=== PATIENT | female | born 1985 | race Caucasian/White ===

== ENCOUNTER 2016-04-03 20:52 | Emergency (ER) | payer MEDICAID, OTHER ==
[~2016-04-03] VITALS: Ht 160 cm; Wt 55.0 kg
[~2016-04-03 20:52] MED LIST: DOCO200C PO; Docusate Sod/Senna PO; IBUP600 PO
[2016-04-03 20:54] VITALS: BP 147/84; PULSE 75; RESP 16; TEMP 98.5; O2SAT 98
--- NOTE | 2016-04-03 23:01 | PD ---
HPI Chief Complaint: Back/ Neck Pain or Injury Time Seen by Provider: 22:58 Travel History International Travel<30 days: No Contact w/Intl Traveler<30days: No Traveled to known affect area: No History of Present Illness HPI 31-year-old white female presents to emergency department with three-day history of lower back pain. She states that she does lifting at work but does not recall any injury. She states the pain is worse in the lower back but does travel up her back to her neck. She has had no significant back injuries in the past. She has not had any recent illness. No fever chills. No nausea vomiting. No abdominal pain or diarrhea. No dysuria or frequency. No hematuria. She states the pain is worse when she bends and moves. Sometimes sitting is uncomfortable as well. Pain is moderate. PFSH Past Medical History Medical History: Denies Significant Hx Tetanus Vaccination: < 5 Years ?: Not LMP: 02/29/16 Past Surgical History Surgical History: No Previous Surgery Social History Alcohol Use: Yes Tobacco Use: Yes Allergies-Medications (Allergen,Severity, Reaction): Coded Allergies: Penicillin (Unverified Allergy, Mild, hives, 04/03/16) Reported Meds & Prescriptions Reported Meds & Active Scripts Active Diclofenac Sodium DR (Diclofenac Sodium) 50 Mg Tabdr 50 Mg PO TID Robaxin (Methocarbamol) 500 Mg Tab 500 Mg PO QID Motrin 600 Mg Tab (Ibuprofen) 600 Mg Tab 600 Mg PO Q6H PRN [Docusate Sod/Senna] 1 TAB Tab 2 Tab PO Q12H PRN Reported Dha (Docosahexanoic Acid) 200 Mg Cap 200 Mg PO DAILY Review of Systems Except as stated in HPI: all other systems reviewed are Neg Physical Exam Narrative GENERAL: Well-developed, well-nourished in no apparent distress. Nontoxic appearing. HEAD: Normocephalic, atraumatic. EYES: Pupils equal round and reactive. Extraocular motions intact. No scleral icterus. No injection or drainage. ENT: Nose clear. Throat without erythema, tonsillar hypertrophy or exudate. Uvula midline. Airway patent. NECK: Trachea midline. Supple, nontender, moves head freely. No central bony tenderness or spasm. CARDIOVASCULAR: Regular rate and rhythm without murmurs, gallops, or rubs. RESPIRATORY: Clear to auscultation. Breath sounds equal bilaterally. No wheezes , rales, or rhonchi. GASTROINTESTINAL: Abdomen soft, non-tender, nondistended. No hepato-splenomegaly , or palpable masses. No guarding. EXTREMITIES: No clubbing, cyanosis, or edema. No joint tenderness. BACK: Resting comfortable in the examination room. Without deformity. No flank tenderness. No central bony tenderness to palpation of dorsal lumbar spine. The patient has some mild paraspinal tenderness in the lower lumbar spine. No spasm. She is able to bend 4-70. Negative straight leg raise. Heel and toe stand. No saddle anesthesia. Neurovascular intact distally. NEUROLOGICAL: Awake, alert and oriented x 3 .Cranial nerves grossly intact. Motor and sensory grossly within normal limits. Normal speech. Data Data Last Documented VS Vital Signs Date Time Temp Pulse Resp B/P Pulse Ox O2 Delivery O2 Flow Rate FiO2 04/03/16 20:54 98.5 75 16 147/84 98 Room Air Orders Spine, Lumbar - Ltd (Ap & Lat) (04/03/16 22:57) Naproxen (Naprosyn) (04/03/16 23:15) Cyclobenzaprine (Flexeril) (04/03/16 23:15) Ondansetron Odt (Zofran Odt) (04/04/16 00:00) Urinalysis - C+S If Indicated (04/03/16 23:47) Ed Urine Pregnancytest Poc (04/03/16 23:47) Labs Laboratory Tests Test 04/03/16 23:59 Urine Color YELLOW Urine Turbidity CLEAR Urine pH 8.0 Urine Specific [place] 1.015 Urine Protein TRACE mg/dL Urine Glucose (UA) NEG mg/dL Urine Ketones NEG mg/dL Urine Occult Blood NEG Urine Nitrite NEG Urine Bilirubin NEG Urine Urobilinogen LESS THAN 2.0 MG/DL Urine Leukocyte Esterase SMALL Urine RBC LESS THAN 1 /hpf Urine WBC 1 /hpf Urine Squamous Epithelial 4 /hpf Cells Microscopic Urinalysis Comment CULT NOT INDICATED MDM Medical Decision Making Medical Screen Exam Complete: Yes Emergency Medical Condition: Yes Medical Record Reviewed: Yes Interpretation(s) Laboratory Tests Test 04/03/16 23:59 Urine Color YELLOW Urine Turbidity CLEAR Urine pH 8.0 Urine Specific [place] 1.015 Urine Protein TRACE mg/dL Urine Glucose (UA) NEG mg/dL Urine Ketones NEG mg/dL Urine Occult Blood NEG Urine Nitrite NEG Urine Bilirubin NEG Urine Urobilinogen LESS THAN 2.0 MG/DL Urine Leukocyte Esterase SMALL Urine RBC LESS THAN 1 /hpf Urine WBC 1 /hpf Urine Squamous Epithelial 4 /hpf Cells Microscopic Urinalysis Comment CULT NOT INDICATED Last 24 hours Impressions Lumbar Spine X-Ray 04/03/16 [id number] Signed Impressions: Service Date/Time: Sunday, April 03, 2016 23:31 - CONCLUSION: Normal examination for a patient of this age. Jose Srivastava MD Lumbar spine: Negative for acute fracture. No subluxation. Differential Diagnosis MDM: High Differential diagnoses: AAA,Fracture, sprain, strain, HNP, nerve or vascular injury, epidural abscess, pilonidal cyst, pyelonephritis, UTI, nephrolithiasis, ureterolithiasis Narrative Course X-rays of the lumbar spine are negative for bony injury.. Patient is given naproxen 500 mg by mouth and Flexeril 10 mg by mouth. I went back to give the patient her laboratory results and she was in the bathroom. She states that she has gotten sick and had been vomiting her medication up. She states that she typically has hard time taking medications. I informed her that we will give her 4 mg of Zofran by mouth and check a urinalysis before she is discharged. The patient has refused the Zofran. She states that she would rather try ellen patrick. She has had resolution of her nausea and vomiting. Her urinalysis is negative. Her pains is negative. The patient states she is feeling better. The patient is stable for discharge. This is lower back pain. Diagnosis Primary Impression: Lower back pain Qualified Code: M54.5 - Acute bilateral low back pain without sciatica Patient Instructions: General Instructions Departure Forms: Tests/Procedures, Work Release Special Instructions: No work 3 days. Additional Instructions: Rest. Ice for the next 3 days followed by heat . Robaxin and Voltaren. Follow-up with a primary care doctor in one week. Return to the ER for emergencies. Med/Other Pt SpecificInfo: Prescription(s) given Scripts Ondansetron (Zofran)4 Mg Tab4 Mg PO Q6HR PRN (NAUSEA OR VOMITING) #12 TAB Prov:Williams Landa 04/04/[address] 50 Mg Tabdr50 Mg PO TID #30 TAB Prov:Andres,Hung MD 04/03/16 Methocarbamol (Robaxin)500 Mg [id number] Mg PO QID #40 TAB Prov:Benny Campos MD 04/03/16 Disposition: 01 DISCHARGE HOME Condition: Stable Williams Landa Apr 03, 2016 23:01
[2016-04-03] MEDS ORDERED: DICL50TA3 PO (23:03)
[2016-04-03] MEDS ORDERED: ROBA500T PO (23:03)
[2016-04-03] MEDS ORDERED: CYCLOBENZAPRINE HCL 10 MG TAB PO ONE (23:15)
[2016-04-03] MEDS ORDERED: NAPROXEN 500 MG TAB PO ONE (23:15)
--- NOTE | 2016-04-03 23:45 | RADRPT ---
EXAM DATE/TIME: 04/03/2016 23:31 [facility] COMPARISON: No previous studies available for comparison. INDICATIONS : Lower back pain from unknown injury. MEDICAL HISTORY : None. SURGICAL HISTORY : None. ENCOUNTER: Initial ACUITY: 1 day PAIN SCORE: 4/10 LOCATION: Bilateral lumbar FINDINGS: Two view examination was performed. There are five non-rib bearing vertebral bodies. 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 The vertebral bodies are in normal alignment without evidence of subluxa tion or scoliosis. The disc spaces are maintained. The pedicles are intact. Bony mineralization is normal. No fracture is identified. There is good alignment of the SI joints. CONCLUSION: Normal examination for a patient of this age. Jose Srivastava MD on April 03, 2016 at 23:43 Board Certified Radiologist. This report was verified electronically.
[2016-04-04] MEDS ORDERED: ONDANSETRON ODT 4 MG TAB PO ONE
[2016-04-04 00:28] LABS: BLOOD, URINE NEG (NEG); COMMENT (UR) CULT NOT INDICATED; CULTURE IF INDICATED CULT NOT INDICATED; GLUCOSE,URINE NEG (NEG); KETONE, URINE NEG (NEG); NITRITE,URINE NEG (NEG); SQUAMOUS EPITHELIAL CELL URINE 4 /hpf (0-5); URINE COLOR YELLOW (YELLW/STRAW)
[2016-04-04] MEDS ORDERED: ZOFR4TAB PO (00:35)
== END 2016-04-04 00:49 | disposition home or self-care (01) ==
LOC: NEPB 20:52
DX: M54.5 Low back pain (principal); Z72.0 Tobacco use
CPT/HCPCS: 72100; 81001; 84703; 99283